=== PATIENT | male | born 1990 | race African-American/Black ===

== ENCOUNTER 2019-11-22 16:25 | Emergency (ER) | payer SELFPAY ==
[2019-11-22 16:26] VITALS: BP 123/87; PULSE 84; RESP 15; TEMP 36.4; O2SAT 98; BMI 25.7
--- NOTE | 2019-11-22 16:48 | ED.DCSUM_ITS ---
- ER Visit Summary Date of Service: 11/22/19 Chief Complaint: Rash History of Present Illness: The patient is a 29 M who presents with a rash that began today. Patient states the rash is generalized. Patient states the rash is pruritic. Patient admits to using a new shampoo recently. Patient states the rash gets worse with scratching. Patient states he did have some nausea, vomiting, and diarrhea yesterday. Patient states this has resolved. Patient denies any fevers or chills. Patient denies any sore throat or difficulty swallowing. Patient denies any shortness of breath. Physical Examination: Vital signs are stable. Patient is afebrile. Patient is in no acute distress. Oral mucosa is pink and moist. Oropharynx is clear. Airway is patent. Neck is supple. Trachea is midline. There is no JVD. Heart was regular rate and rhythm. Lungs are clear and equal bilaterally. Abdomen is soft and nontender. Cranial nerves II through XII are intact. There are no focal motor or sensory deficits noted. Emergency Department Course and Treatment: Patient was given a dose of Benadryl here. Patient does not want to take prednisone. Patient was instructed to take Benadryl as needed for hives. Patient was instructed to follow-up with his primary care physician in 5 to 7 days. Patient understood and was agreeable with the plan. All questions were answered. Disposition: Discharge home Impression: Urticaria This note was generated with [employer] dictation software. It may contain incorrect words, spelling, and punctuation that were not noted in review of the chart prior to signing ED Disposition - Plan for ED Patient: Referrals: Care Physician,No Primary [Primary Care Provider] -
--- NOTE | 2019-11-22 16:51 | ED.VISSUMM ---
- ER Visit Summary Date of Service: 11/22/19 Chief Complaint: [] History of Present Illness: The patient is a 29 M [] Physical Examination: [] Test Results: [] Emergency Department Course and Treatment: [] Treatment Plan: [] Disposition: [] Impression: [] This note was generated with [employer] software. It may contain incorrect words, spelling, and punctuation that were not noted in review of the chart prior to signing ED Disposition - Plan for ED Patient: Disposition: Home or Assisted Living Diagnosis: Urticaria Instructions: ALLERGIC REACTION, Other (General) Referrals: Care Physician,No Primary [Primary Care Provider] - Additional Instructions: Take Benadryl as needed for any hives or itching. Follow-up with your primary care physician in 5 to 7 days for reevaluation.
[2019-11-22] MEDS: DiphenhydrAMINE 25 MG Capsule PO (17:03)
[2019-11-22] MEDS: Azithromycin 250 MG Tablet 1000 MG PO (17:28)
[2019-11-22] MEDS: Ceftriaxone 500 MG Vial 250 MG IM (17:35)
[2019-11-22 18:54] LABS: Chlamydia Trachomatis by PCR Negative (Negative); Neisserai gonorrhoeae by PCR Negative (Negative); Probe Check PASS; Sample Adequacy Control PASS; Specimen Processing Control PASS
== END 2019-11-22 17:57 | disposition home or self-care (01) ==
PROVIDERS: Emergency Provider Emergency Medicine
DX: L50.9 Urticaria, unspecified (principal); F17.210 Nicotine dependence, cigarettes, uncomplicated
CPT/HCPCS: 87491; 87591; 99282

== ENCOUNTER 2022-03-14 18:52 | Emergency (ER) | payer BC, MEDICAID, SELFPAY ==
[2022-03-14 18:54] VITALS: BP 151/89; PULSE 84; RESP 18; TEMP 36.5; O2SAT 98; BMI 30.8
--- NOTE | 2022-03-14 19:13 | EDS_ITS ---
HPI History of Present Illness Chief Complaint: Dental Narrative Narrative: 31-year-old male with acute onset right sided wisdom tooth pain. Patient states he was finished eating dinner was picking his tooth with a toothpick as he usually does and noted the pain was acute in onset. Patient states he chronically has some issues with this tooth but nothing this severe. Patient states he is from [place] and does not have dental follow-up but does have health insurance and dental insurance. Patient denies any other injury. Patient states the pain was so severe that he called EMS to come to the emergency department. PFSH PFSH Home Medications oxycodone 5 mg PO Q6H PRN 3 Days #12 tab 03/14/22 [Rx Last Taken Unknown] Allergy/AdvReac Type Severity Reaction Status Date / Time No Known Allergies Allergy Verified 03/14/22 18:55 Social History Smoking Status: Current every day smoker tobacco type: cigarettes ROS ROS ED Constitutional Constitutional ED: Denies chills, fever(s) or sweats Eyes Eyes: Denies blurry vision ENT ENT ED: Denies rhinorrhea or sore throat Cardiovascular Cardiovascular: Denies chest pain or palpitations Respiratory/Chest Respiratory/Chest: Denies cough or dyspnea Gastrointestinal Gastrointestinal: Denies abdominal pain or nausea Genitourinary Genitourinary ED: Denies dysuria or hematuria Musculoskeletal Musculoskeletal: Denies arthralgias or myalgias Integumentary Denies rash Neurologic Neurologic: Denies headache(s) Psychiatric Psychiatric: Denies anxiety or depression EXAM Physical Exam Const Vital Signs: 03/14/22 18:54 03/14/22 19:22 Temperature 97.7 F L Temperature Source Temporal Pulse Rate 84 64 Respiratory Rate 18 17 Blood Pressure 151/89 H 110/66 Blood Pressure Mean 109 80 Pulse Ox 98 99 Oxygen Delivery Method Room Air Room Air Positive well nourished General Appearance ED: NAD HEENT HEENT Narrative: Percussion tenderness to the right wisdom tooth. There is slight abnormal lie to the tooth and the posterior aspect of the tooth is raised in the anterior aspect is depressed. There is no dental fracture that is observed. Negative for trauma Mouth ED: Yes oral and palatal mucosa normal, Yes lips normal, Yes tongue normal and Yes salivary gland normal Mouth: oral and palatal mucosa normal, lips normal, tongue normal and salivary gland normal Throat: posterior oropharynx normal Eyes PERRL Neck no lymphadenopathy and supple Resp normal respiratory effort and clear to auscultation bilaterally Cardio regular rate and regular rhythm Neuro oriented x3 and CN's II-XII intact bilaterally Sensorium / Orientation: alert Psych mental status grossly normal Skin no rashes or lesions noted MDM MDM MDM Narrative Medical decision making narrative: Patient given oxycodone for pain, Toradol, lidocaine swish and spit. We discussed follow-up with a dental professional. He was given a list with dental professionals from the emergency room but states he might go through his insurance to find somebody that can follow-up faster. He was prescribed pain medication for home. He does not show any sign of infection and the pain was acute in onset so I do not believe he needs antibiotics. Patient stable for discharge at this time. Impression: 1. Dental pain Discharge Plan Triage Chief Complaint: Dental ED Provider: Ruiz Machado Dx/Rx/DC Orders Instructions: ED Dental Pain Prescriptions: New oxycodone 5 mg tablet 5 mg PO Q6H PRN (Reason: pain) 3 Days Qty: 12 RF: 0 Primary Care Provider: Care Physician,No Primary Referrals: Care Physician,No Primary [Primary Care Provider] - Disposition Disposition: Home, Self Care
[2022-03-14] MEDS: oxyCODONE 5 MG Tablet PO (19:20)
[2022-03-14] MEDS: Ketorolac 10 MG Tablet PO (19:20)
[2022-03-14 19:22] VITALS: BP 110/66; PULSE 64; RESP 17; O2SAT 99
[2022-03-14] MEDS: Morphine 4 MG/ML Syringe IM (19:47)
[2022-03-14 19:50] VITALS: BP 114/70; PULSE 74; RESP 15; O2SAT 99
== END 2022-03-14 21:12 | disposition home or self-care (01) ==
LOC: ED 19:25
PROVIDERS: Emergency Provider Student in an Organized Health Care Education/Training Program; Visit Provider Student in an Organized Health Care Education/Training Program
DX: K08.89 Other specified disorders of teeth and supporting structures (principal); F17.210 Nicotine dependence, cigarettes, uncomplicated
CPT/HCPCS: 96372; 99285

== ENCOUNTER 2022-08-26 20:10 | Emergency (ER) | payer BC, MEDICAID, SELFPAY ==
[2022-08-26 20:11] VITALS: BP 144/112; PULSE 61; RESP 16; TEMP 36.6; O2SAT 99; BMI 28.0
--- NOTE | 2022-08-26 20:18 | EKG12_ITS ---
Test Reason : CP Blood Pressure : / mmHG Vent. Rate : 063 BPM Atrial Rate : 063 BPM P-R Int : 172 ms QRS Dur : 108 ms QT Int : 412 ms P-R-T Axes : 051 003 012 degrees QTc Int : 421 ms Normal sinus rhythm Incomplete right bundle branch block Borderline ECG Confirmed by JOHANA ROBLERO, HORTENSIA ([id number]), commercial production editor BRENDA SOLER ([id number]) on 08/28/2022 12:39:39 PM Referred By: KENAN Confirmed By:HORTENSIA VAUGHN MD
--- NOTE | 2022-08-26 21:39 | ED.RN ---
STATES HE WANTS HIS IV OUT BECAUSE IT IS PAINFUL. STATES HE WAS JUST WAITING ON THE LABS BUT SEES THE LABS SITTING THERE. THIS NURSE TOOK TUBES AND LOOKED AT THE BOARD AND EXPLAINED TO THE PATIENT I STILL DO NOT HAVE ORDERS BUT DOCTOR EARLENE WAS IN AND WILL BE SENDING IT DOWN ONCE THE ORDER IS IN. STATES HE DOES NOT CARE AND WANTS IT OUT. EXPLAINED THE DOCTOR MAY WANT TO ORDER SOMETHING THAT NEEDS THE IV SO IF I TAKE IT OUT, WE WILL NEED TO PUT IN ANOTHER LINE. STATES HE DOES NOT CARE BECAUSE THE DOCTOR TOLD HIM THE ECG WAS GOOD AND HE DOES NOT HAVE ALL NIGHT TO SIT HERE. EXPLAINED A CHEST PAIN CAN TAKE 4 HOURS TO WORK UP WITH THE LABS, ECG, AND CXR AND EXPLAINED TROPONIN AND ECG CHANGES TO PATIENT AND LET HIM KNOW WE KEEP HIM TO DO THE FULL WORK UP BECAUSE THE MARKERS FOR [place] CAN BE DELAYED. PATIENT STATES HE WILL CALL 911 IF HE IS HAVING AN [place] AND HE IS NOT STAYING. HE STATES HE WILL SIGN THE PAPERS AND UNDERSTANDS HE IS LEAVING AT HIS OWN RISK. DR HENAO IS AWARE BUT PATIENT LEFT WHILE THE FORM FOR AMA WAS PRINTING.
--- NOTE | 2022-08-27 00:42 | ED.VIS.CHEST ---
HPI History of Present Illness Chief Complaint: Chest Pain Informant: patient Onset/Context/Timing Onset: Days (4 days) Activity at onset: sudden Timing: Intermittent Quality: Positive for Sharp Location: Left Parasternal and Left Chest Worsened By: Breathing Relieved By: - (Sleeping) Associated Symptoms: Positive for Cough; Negative for Nausea, Vomiting, Diaphoresis, Dyspnea, Fever, Lightheadedness, Acid Reflux or Palpitations Narrative Narrative: Patient presents with chest pain that has been intermittent over the last 4 days. Patient describes the pain as sharp. Patient states the pain is over the left parasternal area and left chest. Patient states it is worse with deep breathing. Patient states it is better whenever he is able to sleep. Patient admits to a cough but denies any sputum production. Patient admits to some palpitations. Patient denies any nausea, vomiting, or diaphoresis. Patient denies any shortness of breath or fevers. Patient denies any lightheadedness. Patient is a smoker but denies any other cardiac or PE risk factors. CVD Risk Factors: Positive for Smoking; Negative for Hypertension, Diabetes, Hypercholesterolemia or Family History 1' </=55 PE Risk Factors: Negative for Recent Travel/Surgery, Recent Immobilization, Prior DVT or PE, Cancer or OCP + Smoking + >/=35 PFSH PFSH Medical History no medical history no medical history Home Medications NK 08/26/22 [History Last Taken Unknown] Allergy/AdvReac Type Severity Reaction Status Date / Time No Known Allergies Allergy Verified 08/26/22 20:14 Social History Smoking Status: Current every day smoker tobacco type: cigarettes ROS ROS ED Constitutional Constitutional ED: Denies chills or fever(s) Eyes Eyes: Denies blurry vision or change in vision ENT ENT ED: Denies rhinorrhea or sore throat Cardiovascular Cardiovascular: Reports chest pain; Denies palpitations Respiratory/Chest Respiratory/Chest: Reports cough; Denies dyspnea Gastrointestinal Gastrointestinal: Denies abdominal pain, nausea or vomiting Genitourinary Genitourinary ED: Denies dysuria or hematuria Musculoskeletal Musculoskeletal: Reports back pain and neck pain Integumentary Denies abscess or rash Neurologic Neurologic: Denies headache(s) or weakness Allergic/Immunologic Allergic/Immunologic ED: Denies mouth swelling or urticaria EXAM Physical Exam Const Vital Signs: 08/26/22 20:11 10/18/22 20:18 Temperature 97.8 F Temperature Source Temporal Pulse Rate 61 Respiratory Rate 16 Respiratory Effort Normal Non-Labored Blood Pressure 144/112 H Blood Pressure Mean 122 Pulse Ox 99 Oxygen Delivery Method Room Air Positive well nourished and well developed General Appearance ED: well developed and NAD HEENT normocephalic and atraumatic Eyes PERRL and EOMs intact bilaterally Neck supple and no JVD Chest Wall Chest: tenderness pectoral muscle left and costochondral junction Resp normal respiratory effort and clear to auscultation bilaterally Effort and Inspection: Negative for respiratory distress Cardio regular rate, regular rhythm and no murmurs GI normal to inspection, nondistended, normoactive bowel sounds, soft to palpation, non-tender and non-distended Extremity normal to inspection General Extremety ED: Negative for edema or tenderness General Extremity: Negative for edema Neuro oriented x3, CN's II-XII intact bilaterally and no sensory deficits noted Sensorium / Orientation: awake and alert Motor Exam: strength 5/5 throughout Psych mental status grossly normal MDM MDM MDM Narrative Medical decision making narrative: EKG was obtained. On my interpretation, it showed a normal sinus rhythm with a rate of 63. [place] interval, QRS interval, and QTc intervals were all normal. There is an incomplete right bundle branch block pattern noted. Exchange was normal. There are no acute ST or T wave changes. I recommended lab work and chest x-ray to further evaluate his chest pain. Patient does not want to stay for any further testing. Patient left prior to signing any paperwork. EKG Initial EKG: Attestation: I personally reviewed and interpreted this EKG as follows: Interpretation: Sinus Rhythm (63) and No Acute Injury Pattern Prior EKG tracings: not available for review Prior: No Prior Discharge Plan Triage Chief Complaint: Chest Pain ED Provider: Brendan Chapman Dx/Rx/DC Orders Clinical Impression: Chest pain Instructions: ED Chest Pain, Uncertain Cause Prescriptions: No Action NK Primary Care Provider: Care Physician,No Primary Referrals: Care Physician,No Primary [Primary Care Provider] - Disposition Disposition: [facility] Discharge Date/Time: 08/26/22 22:13
== END 2022-08-26 22:13 | disposition left against medical advice (07) ==
LOC: ED 21:39
PROVIDERS: Emergency Provider Emergency Medicine; Visit Provider Emergency Medicine
DX: R07.9 Chest pain, unspecified (principal); F17.210 Nicotine dependence, cigarettes, uncomplicated; I45.10 Unspecified right bundle-branch block; R00.2 Palpitations
CPT/HCPCS: 93005; 99284; A4216

== ENCOUNTER 2025-01-05 13:42 | Emergency (ER) | payer BC, SELFPAY ==
[2025-01-05 13:44] VITALS: BP 122/90; PULSE 84; RESP 16; TEMP 36.3; O2SAT 99; BMI 30.2
[2025-01-05] MEDS: Loperamide 2 MG Capsule 4 MG PO (14:32)
[2025-01-05] MEDS: 0.9% Normal Saline (1000mL) 1,000 ML 1000 ML IV (14:33)
[2025-01-05 15:28] LABS: Anion Gap 11 (5-15); BUN 19 mg/dL (4-19); BUN/Creat Ratio 15.7 RATIO (10-20); Calcium 8.5 mg/dL (7.6-11.0); Carbon Dioxide 22.1 mmol/L (22.0-29.0); Chloride 102 mmol/L (96-108); Creatinine, Serum 1.2 mg/dL (0.8-1.3); EST Glomerular Filtration Rate 80 (>60); Estimated Creatinine Clearance 112.82 ml/min; Glucose 101 mg/dL (70-99); Potassium 3.6 mmol/L (3.3-5.1); Sodium Level 135 mmol/L (133-145)
--- NOTE | 2025-01-05 15:31 | EDS_ITS ---
HPI History of Present Illness Chief Complaint: Complaint Detail of Chief Complaint: Nausea, vomiting diarrhea with dark-colored urine Informant: patient Onset/Context/Timing Onset: Yesterday Context: Sudden Onset Timing: Intermittent Quality: Nausea vomiting diarrhea Location: GI Current Severity: Mild Maximum Severity: Severe Worsened by: Unknown Relieved by: Nothing Associated Symptoms Associated Symptoms: Thirst, dry mouth and dark urine Narrative Narrative: Patient is a 34-year-old male. He has no significant past medical history. He had some cramping abdominal pain with nausea, vomit diarrhea yesterday. He reports 10-15 episodes of loose watery stool and 15+ episodes of emesis. Night coffee-ground emesis or hematemesis. He states his stool was very dark and may be black. He denies history of hemorrhoids. He denies history of peptic ulcer disease. He denies history of reflux or hiatal hernia. He does endorse decreased urine output and dark urine. He denies fever or chills. He has no other complaints. Prior similar symptoms: Yes Recent Illness/Hospitalization: No PFSH PFSH Medical History no medical history no medical history Home Medications ?Medication ?Instructions ?Recorded ?Last Taken ?Type NK 08/26/22 Unknown History Allergy/AdvReac Type Severity Reaction Status Date / Time No Known Allergies Allergy Verified 08/26/22 20:14 Surgical History no surgical history no surgical history Social History (Updated 01/05/25 @ 15:[address] Anuj Hutchinson MD) household members: significant other Smoking Status: Current every day smoker tobacco type: cigarettes ROS ROS ED Constitutional Constitutional ED: Denies chills, fever(s), subjective or sweats Eyes Eyes: Denies blurry vision or change in vision ENT ENT ED: Denies rhinorrhea or sore throat Cardiovascular Cardiovascular: Denies chest pain or palpitations Respiratory/Chest Respiratory/Chest: Denies cough, dyspnea or dyspnea on exertion Gastrointestinal Gastrointestinal: Reports abdominal pain, diarrhea, nausea and vomiting; Denies constipation or melena Genitourinary Genitourinary ED: Denies dysuria, hematuria or urinary frequency Musculoskeletal Musculoskeletal: Denies arthralgias or myalgias Integumentary Denies rash Neurologic Neurologic: Denies headache(s), paresthesias or weakness Psychiatric Psychiatric: Denies anxiety or depression Endocrine Endocrinology: Denies cold intolerance or heat intolerance Hematologic/Lymphatic Hematologic/Lymphatic: Reports systems reviewed and no addt'l complaints, except as documented Allergic/Immunologic Allergic/Immunologic ED: Denies mouth swelling or tongue swelling EXAM Physical Exam Const Vital Signs: 01/05/25 13:44 01/05/25 15:39 Temperature 97.4 F L Temperature Source Temporal Pulse Rate 84 Pulse Rate [Lying] 66 Pulse Rate [Sitting (for 1 minute prior to obtaining)] 72 Pulse Rate [Standing (for 1 minute prior to obtaining)] 83 Respiratory Rate 16 Blood Pressure 122/90 H Blood Pressure [Lying] 144/80 H Blood Pressure [Sitting (for 1 minute prior to obtaining)] 141/89 H Blood Pressure [Standing (for 1 minute prior to obtaining)] 141/85 H Blood Pressure Mean 100 Blood Pressure Mean [Lying] 101 Blood Pressure Mean [Sitting (for 1 minute prior to obtaining)] 106 Blood Pressure Mean [Standing (for 1 minute prior to obtaining)] 103 Pulse Ox 99 Oxygen Delivery Method Room Air Positive well nourished and well developed Constitutional Narrative: Patient does not appear well. General Appearance ED: well developed; Negative for cyanotic, diaphoretic, NAD or pallor HEENT Reports dry mucous membranes HEENT Narrative: Head is atraumatic normocephalic. Ears normal. Nares patent. Uvula is midline. Posterior pharynx is normal. Mouth ED: Yes dry mucous membranes Mouth: dry mucous membranes Eyes PERRL and EOMs intact bilaterally General Eye ED: Negative for pale conjunctiva or scleral icterus Neck no lymphadenopathy, supple and no JVD Chest Wall inspection of chest normal and palpation of chest normal Resp normal respiratory effort and clear to auscultation bilaterally Cardio regular rate, regular rhythm, S1 normal heart sound, S2 normal heart sound and no murmurs GI normal to inspection, nondistended, normoactive bowel sounds, non-tender, non- distended and no masses; Negative for hepatosplenomegaly GI Narrative: Patient has evidence of prior hemorrhoids. There is no fissures or fistulas noted. Patient's prostate is normal. Fecal matter it was noted was a green- brown color. It was not black or maroon. Palpation: soft Back/Spine no CVA tenderness Extremity normal to inspection General Extremety ED: Negative for edema or tenderness General Extremity: Negative for edema Neuro oriented x3 and CN's II-XII intact bilaterally Sensorium / Orientation: alert Psych mental status grossly normal Skin no rashes or lesions noted, no wounds and skin turgor normal General Skin Exam: Negative for jaundice or pallor MDM MDM MDM Narrative Medical decision making narrative: Clinically patient looks dehydrated. Will hydrate with IV fluids and treat with antiemetic. He also was given Imodium for his diarrhea. BMP was obtained to assess electrolytes, renal function and specifically evaluate for hypokalemia. 1 L of normal saline was ordered. 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 Patient states he is hungry. Plan is discharge to home. Treatment and Re-Evaluation :: Patient was given a work excuse for today. Discharge Plan Triage Chief Complaint: Complaint ED Provider: Anuj Hutchinson Dx/Rx/DC Orders Clinical Impression: Nausea, vomiting and diarrhea, Abdominal pain, Acute dehydration Instructions: ED Vomit Diarrhea Nonspec Adult Prescriptions: No Action NK Stand Alone Forms: Work / School Excuse Primary Care Provider: Care Physician,No Primary Referrals: Care Physician,No Primary [Primary Care Provider] - Print Language: Citizen Of [place] Disposition Disposition: Home, Self Care
[2025-01-05 15:39] VITALS: BP 141/85; BP 141/89; BP 144/80; PULSE 66; PULSE 72; PULSE 83
== END 2025-01-05 16:15 | disposition home or self-care (01) ==
PROVIDERS: Emergency Provider Emergency Medicine; Visit Provider Emergency Medicine
DX: R11.2 Nausea with vomiting, unspecified (principal); R19.7 Diarrhea, unspecified; R07.9 Chest pain, unspecified; F17.210 Nicotine dependence, cigarettes, uncomplicated; R10.9 Unspecified abdominal pain; E86.0 Dehydration
CPT/HCPCS: 80048; 96360; 99283; A4216